=== PATIENT | female | born 1995 | race Caucasian/White ===

== ENCOUNTER 2022-06-18 13:04 | Inpatient (IN) ==
--- NOTE | 2022-06-18 13:54 | History & Physical Report ---
Date of Service June 18, 2022 Assessment & Plan (1) Anencephaly of fetus affecting farah : Plan: Confirmed demise on imaging yesterday patient was counseled and there was a plan to be induced at [facility] today. Apparently the labor and delivery was busy and she was put on hold patient had called the office and she had inquired about being induced today at [facility]. ([place] was full). howeverat that time there were 3 people in active labor or induction I advised the nurse Chika from our office ([facility] [facility]) that we probably could not do this electively at this time and not to send the patient over. Patient was shortly after this call advised from the office to come to over to labor and delivery for evaluation as she had some mild cramping. The patient's cramping is fairly minimal and her cervix is checked and she is closed and she is 50% with firm I suspect the baby is still breech position and confirmed again nonviable 33-week fetus yesterday by imaging I discussed the situation with the patient and her partner is obviously a very sad situation. I placed a call to [place] [facility]- [facility] Dr. Atkinson and addressed the concerns. I inquired whether there would be any tangible benefits from the MicroArray testing she stated that there might possibly be but this was not mandatory to do the testing. I am not sure we can do the testing here. I also confirm whether there is any reasons we would struggle to deliver a breech baby with anencephaly in our institution and she did not think there would be any unusual difficulties with this and would be within our capabilities. Dr. Atkinson did say she would address with labor and delivery and if she could be induced fairly soon there she would contact me back The issue of whether the testing of MicroArray assay would be beneficial would be obviously whether there is any issue of recurrence risk with this and advised the patient and her partner over this that the 1 benefit of this might be determining risk of future pregnancies. Update Dr. Atkinson call back she said that their television news producer was able to call our lab and we would be able to potentially do the genetic testing regardless she did not feel that it was absolutely mandatory to do as it likely will have a lower yield With this information I will begin the process of induction for the patient at [facility] History of Present Illness Primary Care Provider: Suly Viera Patient advised to go to the hospital as she had called in today with some cramping patient is known to have a demise at 33 weeks with anencephaly fetus is in breech position Current Estimate 08/06/22 LMP (Certain) 32w 6d LMP: 10/30/21 : 1 Full term: 0 Premature: 0 Total Number of Induced Abortions: 0 Total Number of Spontaneous Abortions: 0 Ectopics: 0 Multiple births: 0 Number of Living Children: 0 and Delivery Plans Hypothyroid *Check TFTs Q4wks Anencephaly on Anatomy, possible VSD *MFM consult (04/02/22 @ [facility]) *Follow up US in 6wks with MFM *Deliver with MFM at [facility] *Genetics consult -Extended carrier screening negative and cfdna low risk per patient report -Undecided on amnio *Established with [facility] Allergies Allergy/AdvReac Type Severity Reaction Status Date / Time cat dander Allergy Congested Verified 06/18/22 13:40 Home Medications Medication Instructions Recorded Confirmed Type levothyroxine 50 mcg capsule 50 mcg PO DAILY 12/26/21 06/18/22 History albuterol sulfate 90 mcg/actuation 2 puff inhalation DAILY PRN 06/18/22 06/18/22 History aerosol inhaler Wheezing budesonide 32 mcg/actuation nasal 32 mcg intranasal YEARLY 06/18/22 06/18/22 History spray,aerosol cetirizine 10 mg tablet (Zyrtec) 10 mg PO DAILY 06/18/22 06/18/22 History vit no.95-ferrous 1 tab PO DAILY 06/18/22 06/18/22 History fumarate 28 mg-folic acid 800 mcg tablet () Patient History Medical History (Updated 03/21/22 @ 16:55 by Tawny Mooney MD, FACOG) Asthma Burning with urination Varicella vaccination Surgical History (Updated 12/26/21 @ 15:24 by Misty Tidwell) S/P wisdom tooth extraction Family History (Updated 12/26/21 @ 15:08 by Misty Tidwell) Grandmother (Paternal) Breast cancer Denies family history of Ovarian cancer Colorectal cancer Social History (Updated 06/18/22 @ 13:34 by Christin Aguilar, [facility]) Smoking Status: Never smoker marital status: marital status details: fob Chad Busch (22) [phone] Current Living Situation: Spouse and Significant Other Current Living Situation Comment: lives with fob, cats-fob changing litter current occupational status: employed 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 Review of Systems as per Subjective / HPI Physical Exam Constitutional: WD/WN, vitals as above well developed and well nourished Respiratory: normal respiratory effort, lungs clear to auscultation normal respiratory effort Cardiovascular: RRR, no murmur, no edema Gastrointestinal (Abdomen): normal bowel sounds, soft, nontender, no hepatosplenomegaly Genitourinary: Manual OB Exam: + cervical dilation (0), + cervical effacement 50% and + station high Results & Data ([place]) Vital Signs (Past 12 Hours) Vital Signs Pulse BP 06/18/22 13:09 104 H 134/82 Coding Level of Care Code None Diagnoses Anencephaly of fetus affecting farah O35.0XX0
[2022-06-18] MEDS ORDERED: LIDOCAINE 1% LOCAL 20 ML VIAL INFIL PRN (14:05)
[2022-06-18] MEDS ORDERED: OXYTOCIN 30 UNITS/500 ML BAG IV PRN ×2 (14:05→21:03)
[2022-06-18 15:13] LABS: Hematocrit (blood only) 36.1 % (34.1-44.9); Hemoglobin 12.5 g/dl (12.0-16.0); Mean Corpuscular Hemoglobin 29.4 pg (25.0-34.0); Mean Corpuscular Hgb Conc 34.6 g/dL (32.0-36.0); Mean Corpuscular Volume 84.9 fL (80.0-100.0); Mean Platelet Volume 9.1 fL (9.4-12.3); Platelet Count 171 K/uL (130-400); RDW Coefficient of Variation 13.3 % (11.5-14.5); RDW Standard Deviation 40.9 fL (36.4-46.3); Red Blood Count 4.25 M/uL (3.93-5.22); White Blood Count 11.21 K/ul (4.8-10.8)
[2022-06-18 15:32] LABS: INR 0.9 (0.9-1.1); Partial Thromboplastin Ratio 0.9; Partial Thromboplastin Time 24.2 Seconds (21.0-31.0); Prothrombin Time 10.1 Seconds (9.0-12.0)
--- NOTE | 2022-06-18 16:56 | Obstetrical Progress Note ---
Date of Service June 18, 2022 Assessment & Plan (1) demise > 22 weeks, delivered, current hospitalization: Plan: Further clarification we can in fact do the lab today in her hospital the coding of the Micra assay has been entered as a lab report this is been confirmed by Dr. Atkinson from maternal- medicine at [facility]. At this stage the cervical Calero is placed and will begin Pitocin once cervical Calero has had a chance to mature the cervix as far as ripening. It should be noted that induction was somewhat delayed as there were other active events in labor and delivery including deliveries and also coordinating care with [facility] maternal- medicine determining whether patient was a candidate to deliver here in fact she is Admission and Anticipated Discharge Date Admission Date: June 18, 2022 Subjective Cervical Calero placed under sterile conditions cervical Calero placed without stylette into the eyes into the area just above the internal os balloon inflated to 30 cc patient tolerated well speculum removed Results & Data ([facility]) Vital Signs (Past 12 Hours) Vital Signs Temp Pulse Resp BP 06/18/22 14:44 98.4 F 104 H 20 134/82 06/18/22 13:08 20 06/18/22 13:08 98.4 F 20 06/18/22 13:09 104 H 134/82 PG Care Time/CCT Total # of Minutes Spent Total Time Spent with Patient: Total time spent is greater than 50% in coordination of care (as documented) at patient's floor/unit and/or counseling patient: Coding Level of Care Code None Diagnoses demise > 22 weeks, delivered, current hospitalization O36.4XX0
[2022-06-18] MEDS ORDERED: ALBUTEROL HFA 8 GM INHALER INH ONE (19:49)
[2022-06-18] MEDS ORDERED: Nursing to Pharmacy Communication SCH (22:00)
[2022-06-18] MEDS ORDERED: LEVOTHYROXINE SODIUM 50 MCG TABLET PO SCH (22:30)
[2022-06-18] MEDS: BUTORPHANOL TARTRATE 1 MG/ML VIAL IV PRN (23:46)
[2022-06-19] MEDS: BUTORPHANOL TARTRATE 1 MG/ML VIAL IV PRN ×2 (00:49→02:24)
[2022-06-19] MEDS ORDERED: BUTORPHANOL TARTRATE 1 MG/ML VIAL IV ONE (04:05)
[2022-06-19] MEDS: LACTATED RINGER'S 1,000 ML IV PRN ×2 (04:31→05:32)
[2022-06-19] MEDS ORDERED: LIDOCAINE 2%/EPINEPHRINE 1:200,000 20 ML SDV ONE (04:34)
[2022-06-19] MEDS ORDERED: ePHEDrine sulfate 50 MG/ML AMP ONE (04:34)
[2022-06-19] MEDS ORDERED: fentaNYL 2MCG/ML ROPIVACAINE 1.25MG/ML 100 ML BAG EPI ONE (04:34)
[2022-06-19] MEDS ORDERED: fentaNYL citrate 100 MCG/2 ML VIAL ONE (04:34)
[2022-06-19] MEDS ORDERED: SODIUM CHLORIDE 0.9% INJ 10 ML VIAL ONE (04:34)
[2022-06-19] MEDS ORDERED: BUPIVACAINE 0.25% 30 ML VIAL ONE (04:34)
[2022-06-19] MEDS ORDERED: NALBUPHINE HCL INJ 10 MG/ML AMP IV PRN (05:12)
[2022-06-19] MEDS ORDERED: ePHEDrine sulfate 50 MG/ML AMP IV PRN (05:12)
[2022-06-19] MEDS ORDERED: ONDANSETRON INJ 2 MG/ML 2 ML VIAL IV PRN (05:12)
[2022-06-19] MEDS ORDERED: NALOXONE HCL 1 MG in SODIUM CHLORIDE 0.9% 1000ML 1,000 ML IV PRN (05:12)
[2022-06-19] MEDS ORDERED: diphenhydrAMINE 50 MG/ML VIAL IV PRN (05:12)
[2022-06-19] MEDS ORDERED: NALOXONE HCL 0.4 MG/1 ML VIAL/CARP IV PRN (05:12)
[2022-06-19] MEDS ORDERED: fentaNYL 2MCG/ML ROPIVACAINE 1.25MG/ML 100 ML BAG EPI PRN (05:12)
--- NOTE | 2022-06-19 05:13 | Anesthesiology Consultation ---
Date of Service June 19, 2022 Assessment & Plan Chart Review Chart Review: Patient NOT seen in Pre Admission Testing and Acceptable Risk for Labor Epidural Consults Requested none ASA ASA2 Proposed Anesthesia Anesthesia Type: Labor Epidural and CSE Risk / Benefits Reviewed With: PT / POA / Parent / Guardian, Accepts Plan and Informed Consent Obtained History Height/Weight Height: 5 ft 6 in Weight: 81.193 kg Allergies Allergy/AdvReac Type Severity Reaction Status Date / Time cat dander Allergy Congested Verified 06/18/22 13:40 Medications Home Medications Medication Instructions Recorded Confirmed Last Taken levothyroxine 50 mcg capsule 50 mcg PO DAILY 12/26/21 06/18/22 06/17/22 23:30 albuterol sulfate 90 mcg/actuation 2 puff inhalation DAILY PRN 06/18/22 06/18/22 06/17/22 23:45 aerosol inhaler Wheezing budesonide 32 mcg/actuation nasal 32 mcg intranasal YEARLY 06/18/22 06/18/22 06/17/22 23:00 spray,aerosol cetirizine 10 mg tablet (Zyrtec) 10 mg PO DAILY 06/18/22 06/18/22 06/17/22 23:00 vit no.95-ferrous 1 tab PO DAILY 06/18/22 06/18/22 06/18/22 11:00 fumarate 28 mg-folic acid 800 mcg tablet () Active Medications Generic Name Dose Route Start Last Admin Trade Name Freq PRN Reason Stop Dose Admin Lactated Ringer's 1,000 mls @ 125 mls/hr 06/18/22 14:05 06/19/22 04:31 Lr IV 06/20/22 14:04 999 mls/hr .Q8H PRN Administration L&D Protocol Protocol Levothyroxine Sodium 50 mcg 06/18/22 22:30 06/18/22 23:15 Levothyroxine Sodium 50 Mcg Tablet PO 07/18/22 22:29 50 mcg DAILY@2200 VALENTIN Administration NPO Date Last Intake of Fluids: 06/19/22 Time Last Intake of Fluids: 03:00 Date Last Intake of Solids: 06/18/22 Time Last Intake of Solids: 14:00 Past Medical History Medical History Asthma Burning with urination Hypothyroid in , antepartum Exercise / Class Metabolic Activity II 4-5 Yardwork/Stairs/Walk up hill Past Family History Family History Grandmother (Paternal) Breast cancer Denies family history of Ovarian cancer Colorectal cancer Past Surgical History Surgical History S/P wisdom tooth extraction Past Anesthesia History No Hx of Anesthesia Complications and No Family Hx of Anesthesia Complications History of PONV No Hx of PONV and No Hx of Motion Sickness Social History Smoking Status: Never smoker Hx Alcohol Use: No Hx Substance Use: No Review of Systems no chest pain or sob Physical Exam Vital Signs Last Vital Signs Temp 36.8 C 06/19/22 02:27 Pulse 88 06/19/22 05:07 Resp 16 06/19/22 02:27 BP 115/66 06/19/22 02:27 Pulse Ox 95 06/19/22 05:07 O2 Del Method 06/18/22 19:40 ENMT Mouth: no TMJ abnormality Thyromental Distance: > or= 3.5 Finger Breadths Mallampati Class: II Neck normal visual inspection Respiratory normal respiratory effort Auscultation: lungs clear to auscultation bilaterally Cardiovascular Rate/Rhythm: regular rate and regular rhythm Musculoskeletal Spine: normal cervical ROM Neurologic moves all extremities Psychiatric Orientation: alert and oriented x 3 Testing Laboratory Results 06/18/22 15:02 PT 10.1 Seconds (9.0-12.0) 06/18/22 15:02 INR 0.9 (0.9-1.1) 06/18/22 15:02 APTT 24.2 Seconds (21.0-31.0) 06/18/22 15:02
--- NOTE | 2022-06-19 05:55 | Labor Progress Brief Note ---
Date of Service June 19, 2022 Was unable to start Pitocin earlier due to busy census in the unit. Pitocin will be started now Calero catheter in her cervix has been removed she is 4 cm station is high in breech position several times per minute rupture membranes but there is no gush of fluid using an amnio hook again we will start Pitocin at this time Assessment & Plan Admission and Anticipated Discharge Date Admission Date: June 18, 2022 Results & Data ([facility]) Vital Signs (Past 12 Hours) Vital Signs Temp Pulse Resp BP Pulse Ox O2 Del Method 06/18/22 19:40 98.8 F 18 06/18/22 19:40 Room Air 06/19/22 05:53 81 96 06/19/22 05:48 82 96 06/19/22 05:43 80 96 06/19/22 05:38 85 96 06/19/22 05:39 83 118/76 06/19/22 05:37 89 111/75 06/19/22 05:35 91 H 105/68 06/19/22 05:33 83 107/69 97 06/19/22 05:31 90 116/78 06/19/22 05:29 83 115/73 06/19/22 05:28 87 96 06/19/22 05:27 87 123/75 06/19/22 05:25 99 H 129/82 06/19/22 05:23 99 H 137/85 100 06/19/22 05:21 105 H 87 L 06/19/22 05:17 102 H 99 06/19/22 05:14 84 130/84 06/19/22 05:12 104 H 98 06/19/22 05:07 88 95 06/19/22 05:02 88 98 06/19/22 04:57 88 99 06/19/22 04:52 88 99 06/19/22 04:47 85 97 06/19/22 04:42 84 97 06/19/22 04:37 85 93 06/19/22 04:32 94 H 96 06/19/22 04:27 88 93 06/19/22 04:22 94 H 97 06/19/22 04:17 91 H 97 06/19/22 04:11 90 96 06/19/22 04:06 91 H 95 06/19/22 04:01 92 H 94 06/19/22 03:56 87 93 06/19/22 03:52 87 90 06/19/22 03:51 86 96 06/19/22 03:46 87 96 06/19/22 03:42 86 92 06/19/22 03:41 84 97 06/19/22 03:36 89 97 06/19/22 03:31 80 97 06/19/22 03:26 84 97 06/19/22 03:21 85 96 06/19/22 03:16 86 98 06/19/22 03:11 84 97 06/19/22 03:06 89 97 06/19/22 03:01 80 95 06/19/22 02:56 84 97 06/19/22 02:51 80 96 06/19/22 02:50 80 94 06/19/22 02:46 81 96 06/19/22 02:41 82 96 06/19/22 02:36 80 95 06/19/22 02:31 84 96 06/19/22 02:27 98.2 F 85 16 115/66 06/19/22 02:26 81 97 06/19/22 02:21 85 98 06/19/22 02:16 85 98 06/19/22 02:11 85 97 06/19/22 02:06 80 97 06/19/22 02:04 79 94 06/19/22 02:01 81 97 06/19/22 01:56 86 96 06/19/22 01:51 83 98 06/19/22 01:46 84 97 06/19/22 01:41 81 96 06/19/22 01:36 81 96 06/19/22 01:31 93 H 97 06/19/22 01:26 83 95 06/19/22 01:21 85 95 06/19/22 01:16 89 97 06/19/22 01:11 85 96 06/19/22 01:06 95 H 97 06/19/22 01:01 93 H 97 06/19/22 00:56 82 96 06/19/22 00:51 91 H 96 06/19/22 00:46 85 97 06/19/22 00:41 83 97 06/19/22 00:36 80 97 06/19/22 00:31 94 H 97 06/19/22 00:26 91 H 95 06/19/22 00:21 82 98 06/19/22 00:16 82 97 06/19/22 00:11 82 96 06/19/22 00:06 94 H 96 06/19/22 00:01 94 H 96 06/18/22 23:56 96 06/18/22 23:56 86 06/18/22 23:51 97 06/18/22 23:51 85 06/18/22 23:46 99 06/18/22 23:46 88 06/18/22 23:41 98 06/18/22 23:41 88 06/18/22 23:14 18 06/18/22 23:14 98.2 F 18 06/18/22 23:14 82 06/18/22 23:14 118/68 06/18/22 19:48 18 06/18/22 19:48 98.8 F 18 06/18/22 19:48 82 06/18/22 19:48 114/71 Coding Level of Care Code None
[2022-06-19] MEDS ORDERED: LEVOTHYROXINE SODIUM 50 MCG TABLET PO SCH (06:30)
--- NOTE | 2022-06-19 08:53 | Labor Progress Brief Note ---
Date of Service June 19, 2022 Subjective Patient met in room 422 this morning, with Chad and sister April at bedside supporting her. Patient reports being comfortable with epidural. Does not have specific plan or wishes that she would like taken into consideration for her delivery process at this time. Assessment & Plan (1) demise > 22 weeks, delivered, current hospitalization: Plan: Patient with IUFD at 33wk1d of demise, known anencephaly, uncertain etiology of neural tube defect, and undergoing induction of labor. Baby known as "Yury." Hopes to have genetic testing via cord blood which requires collection of two tubes of 4ml each of cord blood. Given the demise, it is uncertain whether that volume of blood will be obtainable, but we will make every effort to do so. The lab has been instructed in completing this testing via phone consult with personnel at [facility], I am told during signout with Dr. Lucio this morning. Patient has excellent family support, is comfortable, and tolerating process well so far. Coagulation studies performed per Dr. Lucio and normal. No further relevant IUFD workup recommended by [facility]; this was considered and discussed between myself and Dr. Lucio this morning as well. Continue pitocin and epidural. (2) Anencephaly of fetus affecting farah : Admission and Anticipated Discharge Date Admission Date: June 18, 2022 Physical Exam Genitourinary: FHT not monitored, IUFD noted. [place] Q2-5, irregular. Pitocin @ 4mu/min, per existing order has been increased 1mu/min at a time. Cervix not examined at this time. Per documentation LOF pink and moderate began at 7:30, whereas AROM at 5:55 was uncertain whether it had been successful, and documented as light mec - perhaps mucus plug? Results & Data ([facility]) Vital Signs (Past 12 Hours) Vital Signs Temp Pulse Resp BP Pulse Ox 06/19/22 08:43 92 H 95 06/19/22 08:39 99 H 114/66 06/19/22 08:38 102 H 98 06/19/22 08:33 100 H 97 06/19/22 08:28 97 H 97 06/19/22 08:25 98 H 113/66 06/19/22 08:23 102 H 98 06/19/22 08:18 84 94 06/19/22 08:13 87 93 06/19/22 08:10 83 99/58 L 06/19/22 08:08 87 96 06/19/22 08:03 92 H 96 06/19/22 07:58 86 96 06/19/22 07:53 91 H 95 06/19/22 07:54 93 H 98/56 L 06/19/22 07:48 82 95 06/19/22 07:43 84 98 06/19/22 07:39 90 96/52 L 06/19/22 07:38 88 96 06/19/22 07:33 87 97 06/19/22 07:28 86 95 06/19/22 07:23 86 97 06/19/22 07:24 90 106/57 L 06/19/22 07:18 87 97 06/19/22 07:13 85 96 06/19/22 07:09 86 100/57 L 06/19/22 07:08 86 97 06/19/22 07:00 16 06/19/22 07:00 16 06/19/22 07:03 82 98 06/19/22 06:58 83 97 06/19/22 06:53 79 96 06/19/22 06:54 74 103/58 L 06/19/22 06:48 88 95 06/19/22 06:43 82 94 06/19/22 06:39 74 104/55 L 06/19/22 06:38 79 94 06/19/22 06:33 74 95 06/19/22 06:28 75 94 06/19/22 06:24 77 99/56 L 06/19/22 06:23 73 95 06/19/22 06:18 73 95 06/19/22 06:13 77 95 06/19/22 06:00 98.2 F 06/19/22 06:09 79 98/56 L 06/19/22 06:08 78 95 06/19/22 06:03 77 97 06/19/22 05:58 80 96 06/19/22 05:56 77 109/65 06/19/22 05:53 81 96 06/19/22 05:48 82 96 06/19/22 05:43 80 96 06/19/22 05:38 85 96 06/19/22 05:39 83 118/76 06/19/22 05:37 89 111/75 06/19/22 05:35 91 H 105/68 06/19/22 05:33 83 107/69 97 06/19/22 05:31 90 116/78 06/19/22 05:29 83 115/73 06/19/22 05:28 87 96 06/19/22 05:27 87 123/75 06/19/22 05:25 99 H 129/82 06/19/22 05:23 99 H 137/85 100 06/19/22 05:21 105 H 87 L 06/19/22 05:17 102 H 99 06/19/22 05:14 84 130/84 06/19/22 05:12 104 H 98 06/19/22 05:07 88 95 06/19/22 05:02 88 98 06/19/22 04:57 88 99 06/19/22 04:52 88 99 06/19/22 04:47 85 97 06/19/22 04:42 84 97 06/19/22 04:37 85 93 06/19/22 04:32 94 H 96 06/19/22 04:27 88 93 06/19/22 04:22 94 H 97 06/19/22 04:17 91 H 97 06/19/22 04:11 90 96 06/19/22 04:06 91 H 95 06/19/22 04:01 92 H 94 06/19/22 03:56 87 93 06/19/22 03:52 87 90 06/19/22 03:51 86 96 06/19/22 03:46 87 96 06/19/22 03:42 86 92 06/19/22 03:41 84 97 06/19/22 03:36 89 97 06/19/22 03:31 80 97 06/19/22 03:26 84 97 06/19/22 03:21 85 96 06/19/22 03:16 86 98 06/19/22 03:11 84 97 06/19/22 03:06 89 97 06/19/22 03:01 80 95 06/19/22 02:56 84 97 06/19/22 02:51 80 96 06/19/22 02:50 80 94 06/19/22 02:46 81 96 06/19/22 02:41 82 96 06/19/22 02:36 80 95 06/19/22 02:31 84 96 06/19/22 02:27 98.2 F 85 16 115/66 06/19/22 02:26 81 97 06/19/22 02:21 85 98 06/19/22 02:16 85 98 06/19/22 02:11 85 97 06/19/22 02:06 80 97 06/19/22 02:04 79 94 06/19/22 02:01 81 97 06/19/22 01:56 86 96 06/19/22 01:51 83 98 06/19/22 01:46 84 97 06/19/22 01:41 81 96 06/19/22 01:36 81 96 06/19/22 01:31 93 H 97 06/19/22 01:26 83 95 06/19/22 01:21 85 95 06/19/22 01:16 89 97 06/19/22 01:11 85 96 06/19/22 01:06 95 H 97 06/19/22 01:01 93 H 97 06/19/22 00:56 82 96 06/19/22 00:51 91 H 96 06/19/22 00:46 85 97 06/19/22 00:41 83 97 06/19/22 00:36 80 97 06/19/22 00:31 94 H 97 06/19/22 00:26 91 H 95 06/19/22 00:21 82 98 06/19/22 00:16 82 97 06/19/22 00:11 82 96 06/19/22 00:06 94 H 96 06/19/22 00:01 94 H 96 06/18/22 23:56 96 06/18/22 23:56 86 06/18/22 23:51 97 06/18/22 23:51 85 06/18/22 23:46 99 06/18/22 23:46 88 06/18/22 23:41 98 06/18/22 23:41 88 06/18/22 23:14 18 06/18/22 23:14 98.2 F 18 06/18/22 23:14 82 06/18/22 23:14 118/68 Coding Level of Care Code None Diagnoses demise > 22 weeks, delivered, current hospitalization O36.4XX0 Anencephaly of fetus affecting farah O35.0XX0
--- NOTE | 2022-06-19 10:30 | Labor Progress Brief Note ---
Date of Service June 19, 2022 Subjective Comfortable with epidural, denies pressure or urge. Called to room as patient had a significant bloody show. Assessment & Plan (1) demise > 22 weeks, delivered, current hospitalization: (2) Anencephaly of fetus affecting farah : Plan Will increase pitocin to the up-by-two protocol, in order to move her labor along. Admission and Anticipated Discharge Date Admission Date: June 18, 2022 Physical Exam Genitourinary: 4/80/high Palpable breech above the cervix, small/soft, no feet palpated nor cord, but breech is not well engaged against the cervix. Bloody show present. Minimal active leakage, but [facility] Aguilar confirms definite meconium has been seen in fluid during the labor course. [place] Q2-3 Pit @ 6 Results & Data ([facility]) Vital Signs (Past 12 Hours) Vital Signs Temp Pulse Resp BP Pulse Ox 06/19/22 10:18 103 H 98 06/19/22 10:13 101 H 99 06/19/22 10:08 96 H 97 06/19/22 10:03 101 H 98 06/19/22 09:58 103 H 98 06/19/22 09:54 104 H 106/61 06/19/22 09:53 97 H 99 06/19/22 09:48 98 H 99 06/19/22 09:43 98 H 99 06/19/22 09:38 99 H 99 06/19/22 09:39 88 112/65 06/19/22 09:33 97 H 97 06/19/22 09:28 98 H 98 06/19/22 09:25 100 H 102/65 06/19/22 09:23 95 H 98 06/19/22 09:18 100 H 97 06/19/22 09:13 107 H 98 06/19/22 09:09 94 H 97/58 L 06/19/22 09:08 100 H 97 06/19/22 09:03 97 H 96 06/19/22 08:58 91 H 96 06/19/22 07:15 20 06/19/22 07:15 98.2 F 20 06/19/22 08:54 98.4 F 90 20 104/60 06/19/22 08:53 95 H 97 06/19/22 08:48 96 H 97 06/19/22 08:43 92 H 95 06/19/22 08:39 99 H 114/66 06/19/22 08:38 102 H 98 06/19/22 08:33 100 H 97 06/19/22 08:28 97 H 97 06/19/22 08:25 98 H 113/66 06/19/22 08:23 102 H 98 06/19/22 08:18 84 94 06/19/22 08:13 87 93 06/19/22 08:10 83 99/58 L 06/19/22 08:08 87 96 06/19/22 08:03 92 H 96 06/19/22 07:58 86 96 06/19/22 07:53 91 H 95 06/19/22 07:54 93 H 98/56 L 06/19/22 07:48 82 95 06/19/22 07:43 84 98 06/19/22 07:39 90 96/52 L 06/19/22 07:38 88 96 06/19/22 07:33 87 97 06/19/22 07:28 86 95 06/19/22 07:23 86 97 06/19/22 07:24 90 106/57 L 06/19/22 07:18 87 97 06/19/22 07:13 85 96 06/19/22 07:09 86 100/57 L 06/19/22 07:08 86 97 06/19/22 07:00 16 06/19/22 07:00 16 06/19/22 07:03 82 98 06/19/22 06:58 83 97 06/19/22 06:53 79 96 06/19/22 06:54 74 103/58 L 06/19/22 06:48 88 95 06/19/22 06:43 82 94 06/19/22 06:39 74 104/55 L 06/19/22 06:38 79 94 06/19/22 06:33 74 95 06/19/22 06:28 75 94 06/19/22 06:24 77 99/56 L 06/19/22 06:23 73 95 06/19/22 06:18 73 95 06/19/22 06:13 77 95 06/19/22 06:00 98.2 F 06/19/22 06:09 79 98/56 L 06/19/22 06:08 78 95 06/19/22 06:03 77 97 06/19/22 05:58 80 96 06/19/22 05:56 77 109/65 06/19/22 05:53 81 96 06/19/22 05:48 82 96 06/19/22 05:43 80 96 06/19/22 05:38 85 96 06/19/22 05:39 83 118/76 06/19/22 05:37 89 111/75 06/19/22 05:35 91 H 105/68 06/19/22 05:33 83 107/69 97 06/19/22 05:31 90 116/78 06/19/22 05:29 83 115/73 06/19/22 05:28 87 96 06/19/22 05:27 87 123/75 06/19/22 05:25 99 H 129/82 06/19/22 05:23 99 H 137/85 100 06/19/22 05:21 105 H 87 L 06/19/22 05:17 102 H 99 06/19/22 05:14 84 130/84 06/19/22 05:12 104 H 98 06/19/22 05:07 88 95 06/19/22 05:02 88 98 06/19/22 04:57 88 99 06/19/22 04:52 88 99 06/19/22 04:47 85 97 06/19/22 04:42 84 97 06/19/22 04:37 85 93 06/19/22 04:32 94 H 96 06/19/22 04:27 88 93 06/19/22 04:22 94 H 97 06/19/22 04:17 91 H 97 06/19/22 04:11 90 96 06/19/22 04:06 91 H 95 06/19/22 04:01 92 H 94 06/19/22 03:56 87 93 06/19/22 03:52 87 90 06/19/22 03:51 86 96 06/19/22 03:46 87 96 06/19/22 03:42 86 92 06/19/22 03:41 84 97 06/19/22 03:36 89 97 06/19/22 03:31 80 97 06/19/22 03:26 84 97 06/19/22 03:21 85 96 06/19/22 03:16 86 98 06/19/22 03:11 84 97 06/19/22 03:06 89 97 06/19/22 03:01 80 95 06/19/22 02:56 84 97 06/19/22 02:51 80 96 06/19/22 02:50 80 94 06/19/22 02:46 81 96 06/19/22 02:41 82 96 06/19/22 02:36 80 95 06/19/22 02:31 84 96 06/19/22 02:27 98.2 F 85 16 115/66 06/19/22 02:26 81 97 06/19/22 02:21 85 98 06/19/22 02:16 85 98 06/19/22 02:11 85 97 06/19/22 02:06 80 97 06/19/22 02:04 79 94 06/19/22 02:01 81 97 06/19/22 01:56 86 96 06/19/22 01:51 83 98 06/19/22 01:46 84 97 06/19/22 01:41 81 96 06/19/22 01:36 81 96 06/19/22 01:31 93 H 97 06/19/22 01:26 83 95 06/19/22 01:21 85 95 06/19/22 01:16 89 97 06/19/22 01:11 85 96 06/19/22 01:06 95 H 97 06/19/22 01:01 93 H 97 06/19/22 00:56 82 96 06/19/22 00:51 91 H 96 06/19/22 00:46 85 97 06/19/22 00:41 83 97 06/19/22 00:36 80 97 06/19/22 00:31 94 H 97 06/19/22 00:26 91 H 95 06/19/22 00:21 82 98 06/19/22 00:16 82 97 06/19/22 00:11 82 96 06/19/22 00:06 94 H 96 06/19/22 00:01 94 H 96 06/18/22 23:56 96 06/18/22 23:56 86 06/18/22 23:51 97 06/18/22 23:51 85 06/18/22 23:46 99 06/18/22 23:46 88 06/18/22 23:41 98 06/18/22 23:41 88 06/18/22 23:14 18 06/18/22 23:14 98.2 F 18 06/18/22 23:14 82 06/18/22 23:14 118/68 Coding Level of Care Code None Diagnoses demise > 22 weeks, delivered, current hospitalization O36.4XX0 Anencephaly of fetus affecting farah O35.0XX0
--- NOTE | 2022-06-19 12:47 | Delivery Summary ---
Vaginal Delivery Summary Date of Service June 19, 2022 Vaginal Delivery Summary DIAGNOSES: 1. Crisostomo intrauterine at 33w1d gestation. 2. anencephaly 3. Intrauterine demise 4. Induction of Labor PROCEDURE: Spontaneous vaginal delivery without laceration. SURGEON: Melissa Gutierrez MD. CRUTCHING CONTRACTOR: None. ESTIMATED BLOOD LOSS: 150 mL. COMPLICATIONS: None. PLACENTA: Spontaneous and intact with a 3-vessel cord. DISPOSITION: Stable to labor and delivery. DESCRIPTION: I was notified by Christin Aguilar RN that the patient was examined and found to have a breech present at the perineum. She asked that I wait for her to call me to the bedside, so she could assemble the personnel for delivery including tent assembler, family, etc and make other final preparations. Shortly after I hung up the phone from that call, it rang again and another staff member notified me that Christin had gone back into room 422 and immediately rung out for me to be summoned. I came directly to the patient's bedside and we prepped for delivery. On exam, the breech was protruding about 1" through the vaginal introitus. The patient was encouraged to bear down, and with the first maternal effort, the body in shaye breech position and encased in amniotic membrane delivered to the shoulders. With a second maternal effort, the remainder of the baby delivered onto the bed, which had been prepared with a fluid-catching drape. No signs of life were visible. The expected anencephalic phenotype was evident. Mild desquamation of the skin was evident. The amnion was gently peeled back, and the umbilical cord was accessed. The FOB was offered and accepted an opportunity to cut the cord, which had been doubly clamped. The nonviable infant was placed on the maternal abdomen in a clean towel. The placenta delivered spontaneously and rather suddenly/completely in the next few minutes. It came out while Tonia Roberson was handing me tubes to attempt to collect cord blood, before any collection could be attempted as well as before any traction being applied to the cord. The placenta was noted to be intact and with a 3VC. The cervix, vagina and perineum were examined and were found to be without defect requiring repair. The fundus was firm and lochia minimal immediately after delivery. Separate from the delivery bed, on the sterile table, an attempt was made to strip cord blood from the umbilical cord. Unfortunately all the blood in the cord was firmly clotted. Therefore, tissue was collected for an Anora genetic microarray kit instead. This included the small stump of umbilical cord that had been closest to the and was trimmed from his stump after placement of cord clamp, as well as the next ~4" of cord from the end of what had remained attached to the placenta. At the time I departed the patient's room, the patient and the FOB were holding the , no signs of life had been seen in the at any time since the , and the uterus remained firm with minimal lochia. [facility] Vaginal Delivery Charge Vaginal Delivery Codes: 37264 global code for the antepartum, delivery, and post- Delivery Type Details:
[2022-06-19] MEDS ORDERED: IBUPROFEN 600 MG TAB PO ONE (14:21)
[2022-06-19] MEDS ORDERED: ACETAMINOPHEN 325 MG TAB PO PRN (14:22)
[2022-06-19] MEDS ORDERED: bisacodyL 10 MG SUPP PR PRN (14:22)
[2022-06-19] MEDS ORDERED: OXYTOCIN 30 UNITS/500 ML BAG IV PRN (14:22)
[2022-06-19] MEDS ORDERED: ALBUTEROL HFA 8 GM INHALER INH PRN (14:22)
[2022-06-19] MEDS ORDERED: DIPHTHERIA/TETANUS/PERTUSSIS 0.5 ML SYR/VIAL IM ONE (14:22)
[2022-06-19] MEDS ORDERED: BENZOCAINE 20% AER SPR 82.5 GM CAN EXT PRN (14:22)
[2022-06-19] MEDS ORDERED: HYDROCORTISONE ACETATE 25 MG SUPP PR PRN (14:22)
[2022-06-19] MEDS ORDERED: oxyCODONE/ACETAMINOPHEN 5mg/325mg TAB PO PRN (14:22)
[2022-06-19] MEDS ORDERED: IBUPROFEN 600 MG TAB PO PRN (14:22)
--- NOTE | 2022-06-19 14:38 | Anesthesia Procedure Note ---
Date of Service June 19, 2022 Anesthesia Post Epidural Note Vital Signs Vital Signs: Temp Pulse Resp BP Pulse Ox O2 Del Method 98.4 F 101 H 20 115/69 96 06/19/22 08:54 06/19/22 14:09 06/19/22 08:54 06/19/22 14:09 06/19/22 12:38 06/18/22 19:40 Pain Intensity Bilateral Abdomen: Pain Intensity: 2 Notes Mental Status: alert / awake / arousable and participated in evaluation Nausea / Vomiting: adequately controlled Pain: adequately controlled Airway Patency, RR, SpO2: stable & adequate BP & HR: stable & adequate Hydration State: stable & adequate Neuraxial Anesthesia: was administered and sensory block is resolving Anesthetic Complications: no major complications apparent and Pt Satisfied with anesthetic care Epidural: Removed without complications and With tip intact
--- NOTE | 2022-06-19 20:46 | Communication Note ---
Date of Service: June 19, 2022 I spoke with patient earlier while several family were at her bedside visiting. She was doing very well both emotionally and physically, and had minimal discomfort, minimal bleeding, and was hoping for discharge home. I agreed to put in a discharge order for any time after 8pm this evening to allow at least that long for our staff to monitor her bleeding in the immediate period. I did discuss with her the possibility that either increased pain or increased emotional struggle could arise after she went home; in contrast to the hubbub here on L&D, the relative calm and quiet could provide less distraction. While she might have some comforts at home, she also might have some new challenges. Thus, although she was not using much pain medication on L&D, I asked if she would like to have a small quantity of percocet available for home use. This may be helpful either for cramps and perineal soreness, or perhaps to assist in getting some sleep these first few nights if she has difficulty. She was grateful for the option, and did mention she wasn't sure she would use any of them but felt comforted knowing they could be at hand. I sent a prescription for #5 tablets of percocet to her selected pharmacy. We also discussed the risks of both bleeding/pain and depression/anxiety/grief, and made sure she knows our group remains available to her at any time should she feel she needs help with these issues. We talked about the roles of family and professional support in grief. We discussed how supervisor intermediates recovery from an event like this can range from fairly straightforward to complex, and that talk- therapy as well as medication are sometimes helpful; she can choose what she feels she needs, and just ask if we can help arrange what she would like. At 8:30pm, I am informed that family who were going to hand picker the Rx I sent after that earlier discussion instead stayed here to give support. She's now ready to go home but won't be able to get to a pharmacy before they close. A homepack of percocet was thus requested, and I did provide that.
[2022-06-19] MEDS ORDERED: DOCUSATE SODIUM 100 MG CAP PO SCH (21:00)
[2022-06-19] MEDS ORDERED: PERCOCET 5/325MG HOMEPACK PO ONE (21:00)
[2022-06-20] MEDS ORDERED: PRENATAL VITAMIN 1 TAB PO SCH ×2 (08:00→09:00)
[2022-06-20] MEDS ORDERED: CETIRIZINE HCL 10 MG TABLET PO SCH (09:00)
[2022-06-20] MEDS ORDERED: FLUTICASONE PROPIONATE NA SPR 16 GM BTL SCH (09:00)
[2022-06-20] MEDS ORDERED: bisacodyL 5 MG TABEC PO SCH (20:00)
== END 2022-06-19 21:15 | disposition home or self-care (01) | DRG 806 ==
LOC: OPB 13:04 → 4S1 13:06

== ENCOUNTER 2024-04-09 00:05 | Inpatient (IN) ==
[2024-04-09] MEDS ORDERED: OXYTOCIN 30 UNITS/NSS 30 UNITS/500 ML BAG IV PRN ×2 (05:08→14:47)
[2024-04-09] MEDS ORDERED: LIDOCAINE 1% LOCAL 20 ML VIAL INFIL PRN (05:08)
[2024-04-09] MEDS: LACTATED RINGER'S 1,000 ML IV PRN (05:30)
[2024-04-09] MEDS: PENICILLIN GK 6 MU in DEXTROSE 5% 250 ML IV STA (05:41)
[2024-04-09 05:54] LABS: Hematocrit (blood only) 34.8 % (37.0-47.0); Mean Corpuscular Hemoglobin 30.4 pg (25.0-34.0); Mean Corpuscular Hgb Conc 34.5 g/dL (32.0-36.0); Mean Corpuscular Volume 88.1 fL (80.0-100.0); Mean Platelet Volume 10.1 fL (9.4-12.4); Platelet Count 155 K/uL (130-400); RDW Coefficient of Variation 13.2 % (11.5-14.5); RDW Standard Deviation 42.5 fL (36.4-46.3); Red Blood Count 3.95 M/uL (4.20-5.40); White Blood Count 13.25 K/ul (4.8-10.8)
--- NOTE | 2024-04-09 06:24 | History & Physical Report ---
Date of Service April 09, 2024 Assessment & Plan (1) History of anencephaly in prior , currently : (2) Hypothyroid in , antepartum: (3) GBS carrier: Plan 28 yo at 39 4/7 wga presents in labor VSS Fetus cat 1 Labor - augment prn GBS+, pcn ordered desires epidural Admission and Anticipated Discharge Date Admission Date: April 09, 2024 History of Present Illness Chief Complaint: ctx Primary Care Provider: Suly Viera 28 yo at 39 4/7 wga presented w/ ctx increasing in frequency. 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, anencephaly w/ demise at 33 wks G2 current denies hx stis Allergies Allergy/AdvReac Type Severity Reaction Status Date / Time house dust Allergy Mild Sneezing Verified 04/05/24 10:04 cat dander Allergy Congested Verified 04/05/24 10:04 Home Medications Medication Instructions Recorded Confirmed Type levothyroxine 50 mcg capsule 50 mcg PO DAILY 12/26/21 04/09/24 History albuterol sulfate 90 mcg/actuation 2 puff inhalation DAILY PRN 06/18/22 04/09/24 History aerosol inhaler Wheezing budesonide 32 mcg/actuation nasal 32 mcg intranasal YEARLY 06/18/22 04/09/24 History spray,aerosol cetirizine 10 mg tablet (Zyrtec) 10 mg PO DAILY 06/18/22 04/09/24 History vit no.95-ferrous 1 tab PO DAILY 06/18/22 04/09/24 History fumarate 28 mg-folic acid 800 mcg tablet () folic acid 1 mg tablet 4 mg (4 x 1 mg) PO DAILY #360 tabs 08/06/23 04/09/24 Rx Patient History Medical History Varicella vaccination demise > 22 weeks, delivered, current hospitalization Anencephaly of fetus affecting farah Burning with urination Asthma Surgical History S/P wisdom tooth extraction Family History Grandmother (Paternal) Breast cancer Denies family history of Ovarian cancer Colorectal cancer Social History Smoking Status: Never smoker Hx Alcohol Use: No Hx Substance Use: No Preferred Language: Kosovan Communication Ability: Effective Director Funeral Required: No Beliefs That Will Affect Care: None marital status: marital status details: fobetty Busch (23) [phone] Current Living Situation: Family Current Living Situation Comment: lives with fob, dog, cats-fob changing litter current occupational status: employed 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 Feels Safe at Home: Yes Safety Concerns: Feels Safe At This Time Assistive Devices: None Physical Exam Genitourinary: SVE 2>3>4cm by nursing EFM 130/mod/+accel/-decel [place] q5 Results & Data Vital Signs (Past 12 Hours) Vital Signs Temp Pulse Resp BP 04/09/24 04:33 98.1 F 65 18 118/64 04/09/24 00:31 98.4 F 82 18 130/84 04/09/24 00:22 98.4 F 18 Laboratory Results OB Labs: Blood Type B Positive 09/02/23 Antibody Screen NEGATIVE 09/02/23 Hemoglobin 13.0 g/dl (12.0-16.0) 01/21/24 Hematocrit 38.0 % (37.0-47.0) 01/21/24 Mean Corpuscular Volume 88.9 fL (80.0-100.0) 09/02/23 Platelet Count 246 K/uL (130-400) 09/02/23 Rubella IgG Antibody Immune (Immune) 09/02/23 Rapid Plasma Reagin Nonreactive (Nonreactive) 09/02/23 Hepatitis B Surface Antigen. NON-REACTIVE (NON-REACTIVE) 09/02/23 Hepatitis C Antibody (EIA) NON-REACTIVE (NON-REACTIVE) 09/02/23 HIV (1&2) Ag and Ab Confirmation NON-REACTIVE (NON-REACTIVE) 09/02/23 Glucose 1 Hour 50 gm Load 184 mg/dl (70-130) H 10/27/23 Maternal Serum Alpha Fetoprotein 22.8 ng/mL 10/27/23 OB Optional Labs: Chlamydia trachomatis RNA Not Detected (NotDetected) 09/02/23 Neisseria gonorrhoeae RNA Not Detected (NotDetected) 09/02/23 Thyroid Stimulating Hormone (TSH) 1.457 uIu/ml (0.300-4.500) 02/27/24 Alpha Fetoprotein Triple Screen SEE NOTE 10/27/23 Labs Reviewed: Declines cf/sma--mln Declines cfdna--mln GBS+ Coding Level of Care Code None Diagnoses History of anencephaly in prior , currently O09.299 Hypothyroid in , antepartum O99.280; E03.9 GBS carrier Z22.330
[2024-04-09] MEDS ORDERED: SODIUM CHLORIDE 0.9% PF INJ 10 ML VIAL EPI STA (06:26)
[2024-04-09] MEDS ORDERED: fentaNYL citrate PF 100 MCG/2 ML VIAL EPI STA (06:26)
[2024-04-09] MEDS ORDERED: BUPIVACAINE 0.25% PF 30 ML VIAL EPI PRN (06:26)
[2024-04-09] MEDS ORDERED: NALBUPHINE HCL 5 MG in SYRINGE 0 ML IV PRN (06:26)
[2024-04-09] MEDS ORDERED: NALOXONE HCL 1 MG in SODIUM CHLORIDE 0.9% 1,000 ML IV PRN (06:26)
[2024-04-09] MEDS ORDERED: ROPIVACAINE 0.5% PF 5 MG/ML 20 ML VIAL EPI PRN (06:26)
[2024-04-09] MEDS ORDERED: fentaNYL citrate PF 100 MCG/2 ML VIAL EPI PRN (06:26)
[2024-04-09] MEDS ORDERED: NALOXONE HCL 0.4 MG/1 ML VIAL/CARP IV PRN (06:26)
[2024-04-09] MEDS ORDERED: SODIUM CHLORIDE 0.9% PF INJ 10 ML VIAL EPI PRN (06:26)
[2024-04-09] MEDS ORDERED: ePHEDrine sulfate 50 MG/ML AMP IV PRN (06:26)
[2024-04-09] MEDS ORDERED: diphenhydrAMINE 50 MG/ML VIAL IV PRN (06:26)
[2024-04-09] MEDS ORDERED: LIDOCAINE 2%/EPINEPHRINE 1:200,000 20 ML PF EPI STA (06:26)
[2024-04-09] MEDS ORDERED: LIDOCAINE 2% MPF LOCAL 5 ML VIAL EPI PRN (06:26)
[2024-04-09] MEDS ORDERED: BUPIVACAINE 0.25% PF 30 ML VIAL EPI STA (06:26)
--- NOTE | 2024-04-09 06:26 | Anesthesiology Consultation ---
Date of Service April 09, 2024 Assessment & Plan (1) Encounter for pre-operative examination: Chart Review Chart Review: Patient NOT seen in Pre Admission Testing and Acceptable Risk for Labor Epidural Consults Requested none History Height/Weight Height: 5 ft 6 in Weight: 91.626 kg Allergies Allergy/AdvReac Type Severity Reaction Status Date / Time house dust Allergy Mild Sneezing Verified 04/05/24 10:04 cat dander Allergy Congested Verified 04/05/24 10:04 Medications Home Medications Medication Instructions Recorded Confirmed Last Taken levothyroxine 50 mcg capsule 50 mcg PO DAILY 12/26/21 04/09/24 04/08/24 albuterol sulfate 90 mcg/actuation 2 puff inhalation DAILY PRN 06/18/22 04/09/24 06/17/22 23:45 aerosol inhaler Wheezing budesonide 32 mcg/actuation nasal 32 mcg intranasal YEARLY 06/18/22 04/09/24 04/08/24 spray,aerosol cetirizine 10 mg tablet (Zyrtec) 10 mg PO DAILY 06/18/22 04/09/24 04/08/24 vit no.95-ferrous 1 tab PO DAILY 06/18/22 04/09/24 04/08/24 fumarate 28 mg-folic acid 800 mcg tablet () folic acid 1 mg tablet 4 mg (4 x 1 mg) PO DAILY #360 tabs 08/06/23 04/09/24 04/08/24 Active Medications Generic Name Dose Route Start Last Admin Trade Name Freq PRN Reason Stop Dose Admin Lactated Ringer's 1,000 mls @ 125 mls/hr 04/09/24 05:08 04/09/24 05:57 Lr IV 04/11/24 05:07 125 mls/hr .Q8H PRN Infusion L&D Protocol Protocol Past Medical History Medical History Varicella vaccination demise > 22 weeks, delivered, current hospitalization Anencephaly of fetus affecting farah Burning with urination Asthma Past Family History Family History Grandmother (Paternal) Breast cancer Denies family history of Ovarian cancer Colorectal cancer Past Surgical History Surgical History S/P wisdom tooth extraction Social History Smoking Status: Never smoker Hx Alcohol Use: No Hx Substance Use: No Physical Exam Vital Signs Last Vital Signs Temp 98.1 F 04/09/24 04:33 Pulse 65 04/09/24 04:33 Resp 18 04/09/24 04:33 BP 118/64 04/09/24 04:33 Testing Laboratory Results 04/09/24 05:35
[2024-04-09] MEDS: fentANYL 2 MCG/ML BUPIVacaine 0.125%-NSS 100ML BAG EPI PRN (06:44)
[2024-04-09] MEDS: LIDOCAINE 2%/EPINEPHRINE 1:200,000 20 ML PF ONE (06:45)
[2024-04-09] MEDS: BUPIVACAINE 0.25% PF 30 ML VIAL ONE (06:46)
[2024-04-09] MEDS: fentaNYL citrate PF 100 MCG/2 ML VIAL ONE (06:46)
[2024-04-09] MEDS: ePHEDrine sulfate 50 MG/ML AMP ONE (06:46)
[2024-04-09] MEDS: SODIUM CHLORIDE 0.9% PF INJ 10 ML VIAL ONE (06:47)
[2024-04-09] MEDS: fentANYL 2 MCG/ML BUPIVacaine 0.125%-NSS 100ML BAG ONE (06:47)
[2024-04-09] MEDS: LEVOTHYROXINE SODIUM 50 MCG TABLET PO SCH (08:13)
[2024-04-09] MEDS: OXYTOCIN 30 UNITS/NSS 30 UNITS/500 ML BAG IV PRN (08:41)
[2024-04-09] MEDS: PENICILLIN GK 3 MU in DEXTROSE 5% 100 ML IV PRN (09:28)
[2024-04-09] MEDS ORDERED: DIPHTHER/TETAN/PERTUS Vaccine (Tdap, Adol/Adult) 0.5mL IM ONE (14:47)
[2024-04-09] MEDS ORDERED: bisacodyL 10 MG SUPP PR PRN (14:47)
[2024-04-09] MEDS ORDERED: oxyCODONE/ACETAMINOPHEN 5mg/325mg TAB PO PRN (14:47)
[2024-04-09] MEDS ORDERED: HYDROCORTISONE ACETATE 25 MG SUPP PR PRN (14:47)
[2024-04-09] MEDS ORDERED: ALBUTEROL HFA 8 GM INHALER INH PRN (14:49)
[2024-04-09] MEDS: IBUPROFEN 600 MG TAB PO PRN (15:00)
--- NOTE | 2024-04-09 15:59 | Delivery Summary ---
Vaginal Delivery Summary Date of Service April 09, 2024 Vaginal Delivery Summary and 1st Degree LAC (left labial and perineal) Patient is a 28-year-old 2 para 0-1-0-0 female EDC of 04/12/2024 who presents at 39-4/7 weeks in active labor. She received effective epidural analgesia. Membranes were then ruptured for thin meconium stained fluid. She progressed to full dilation and pushed effectively over intact perineum for delivery of a viable male . After the head was delivered the shoulders were delivered without maternal effort. He was placed on the mother's abdomen for further attention and drying. There was a loop of cord around the right ankle on delivery. After stimulation, the infant was vigorous and crying. The cord was clamped and cut after 1 minute. After cord blood was obtained, the placenta was expressed intact with a three-vessel cord. bleeding was controlled with dilute Pitocin and fundal massage. A first-degree perineal laceration and left labial laceration which was bleeding, were repaired with 3-0 chromic in usual fashion. QBL is 780 mL. Mother and are doing well after delivery. [facility] [place] Vaginal Delivery Charge Delivery Type Details: and 1st Degree LAC (left labial and perineal)
--- NOTE | 2024-04-09 16:22 | Anesthesia Procedure Note ---
Date of Service April 09, 2024 Anesthesia Post Epidural Note Vital Signs Vital Signs: Temp Pulse Resp BP Pulse Ox 36.9 C 94 H 18 116/77 96 04/09/24 14:35 04/09/24 16:20 04/09/24 15:20 04/09/24 16:20 04/09/24 14:07 Notes Mental Status: alert / awake / arousable Nausea / Vomiting: adequately controlled Pain: adequately controlled Airway Patency, RR, SpO2: stable & adequate BP & HR: stable & adequate Hydration State: stable & adequate Neuraxial Anesthesia: was administered and sensory block is resolving Anesthetic Complications: no major complications apparent and Pt Satisfied with anesthetic care Epidural: Removed without complications and With tip intact
[2024-04-09] MEDS: DOCUSATE SODIUM 100 MG CAP PO SCH (20:47)
[2024-04-09] MEDS: BENZOCAINE 20% SPRY 85 APPLN/85 GM CAN EXT PRN (23:43)
[2024-04-10 06:57] LABS: Hematocrit (blood only) 30.8 % (37.0-47.0); Hemoglobin 10.3 g/dl (12.0-16.0); Mean Corpuscular Hemoglobin 29.9 pg (25.0-34.0); Mean Corpuscular Hgb Conc 33.4 g/dL (32.0-36.0); Mean Corpuscular Volume 89.5 fL (80.0-100.0); Mean Platelet Volume 9.8 fL (9.4-12.4); Platelet Count 151 K/uL (130-400); RDW Coefficient of Variation 13.5 % (11.5-14.5); RDW Standard Deviation 44.1 fL (36.4-46.3); Red Blood Count 3.44 M/uL (4.20-5.40); White Blood Count 11.22 K/ul (4.8-10.8)
--- NOTE | 2024-04-10 07:52 | Obstetrical Progress Note ---
Date of Service <Alex Sanchez MD - Last Filed: 04/10/24 07:55> April 10, 2024 Assessment & Plan <Alex Sanchez MD - Last Filed: 04/10/24 07:55> (1) Encounter for assessment: Plan Pt is a 28 y/o female who is now PPD#1 following at 39 weeks. GBS+ PPD 1: stable, routine management -Patient is voiding and ambulating on their own power -Pain is well controlled on as needed analgesia -Tolerating regular diet without nausea or vomiting -Planned to Breast feed * Reassess d/c readiness tomorrow * 6 weeks OB outpatient follow-up <Tawny Mooney MD, FACOG - Last Filed: 04/10/24 08:48> (1) Encounter for assessment: Subjective <Alex Sanchez MD - Last Filed: 04/10/24 07:55> Ambulation: ambulating normally Voiding: no voiding problems Diet Tolerance:: regular diet Lochia:: Moderate Feeding Type:: breast feeding Pt is a 28 y/o female who is now PPD#1 following at 39 weeks. Reports feeling well overall this morning. minimal abdominal cramping and 5/10 pain, well managed on analgesics. Voiding ok. Tolerating meals and able to ambulate some. passing gas but no bowel movements. Some persistent lochia with overall improvement as of this morning. Breast feeding. Review of Systems -Denies fever or chills -Denies dyspnea, chest pain, or palpitations -Denies breast pain -Denies dysuria -Denies headache or changes in vision Physical Exam <Alex Sanchez MD - Last Filed: 04/10/24 07:55> General: Alert and oriented. No acute distress Cardiac: Regular rate and rhythm, no murmurs appreciated Respiratory: Lungs clear to auscultation bilaterally, No increased work of breathing Abdominal: Soft, non-tender, non-distended. Bowel sounds present. Uterus: Uterine fundus firm, palpable below umbilicus Extremities: No lower extremity edema, calves non-tender bilaterally Results & Data <Alex Sanchez MD - Last Filed: 04/10/24 07:55> Vital Signs (Past 12 Hours) Vital Signs Temp Pulse Resp BP Pulse Ox O2 Del Method 04/10/24 03:45 36.7 C 83 20 103/68 97 Room Air 04/09/24 23:45 37.3 C 85 20 111/73 95 Room Air 04/09/24 20:05 36.7 C 88 20 100/66 95 Room Air Supervising Physician <Tawny Mooney MD, FACOG - Last Filed: 04/10/24 08:48> Co-Signing Physician Notes Resident Physician Supervision Note: I interviewed and examined the patient. Discussed with Dr. Sanchez and agree with findings and plan as documented in the note. Any exceptions or clarifications are listed here: [None] Documented By: Tawny Mooney MD, FACOG Resident Activity Tracking <Alex Sanchez MD - Last Filed: 04/10/24 07:55> Resident Involvement: Resident Care Provided Care Provided: OB Delivery
[2024-04-10] MEDS: FLUTICASONE PROPIONATE NA SPR 16 GM BTL SCH (08:21)
[2024-04-10] MEDS: PRENATAL VITAMIN 1 TAB PO SCH (08:21)
[2024-04-10] MEDS: ACETAMINOPHEN 325 MG TAB PO PRN (11:10)
[2024-04-10] MEDS: bisacodyL 5 MG TABEC PO SCH (21:33)
[2024-04-11 07:41] LABS: Hematocrit (blood only) 30.7 % (37.0-47.0); Hemoglobin 10.1 g/dl (12.0-16.0)
--- NOTE | 2024-04-11 09:51 | Obstetrical Progress Note ---
Date of Service April 11, 2024 Assessment & Plan (1) Encounter for assessment: Ready for D/C today Subjective Ambulation: ambulating normally Voiding: no voiding problems Passing Gas:: Yes Diet Tolerance:: regular diet Lochia:: Small Feeding Type:: breast feeding Physical Exam Constitutional WD/WN, vitals as above Eyes PERRL, conjunctivae normal, anicteric sclerae Neck normal visual inspection Respiratory normal respiratory effort and able to speak in complete sentences; no respiratory distress and no labored breathing Cardiovascular Rate/Rhythm: regular rate and regular rhythm Extremities: no edema Chest (Breasts) Chest: normal inspection of chest Gastrointestinal (Abdomen) Inspection/Auscultation: abdomen normal to inspection Soft, postgravid Psychiatric A+Ox3, euthymic affect Genitourinary OB Exam Abdomen: + fundal height Fundus: + firm and + relation to umbilicus (fundus just below umbilicus); not tender Results & Data Vital Signs (Past 12 Hours) Vital Signs Temp Pulse Resp BP Pulse Ox O2 Del Method 04/11/24 08:20 97.9 F 80 20 132/81 04/11/24 01:00 98.1 F 75 18 109/67 97 Room Air
== END 2024-04-11 14:20 | disposition home or self-care (01) | DRG 807 ==
LOC: OPB 00:05 → 4S1 00:09 → 4E2 17:52